=== PATIENT | female | born 1965 | race Hispanic/Latino ===

== ENCOUNTER 2018-06-12 17:25 | Emergency (ER) | payer OTHER ==
[2018-06-12 17:32] VITALS: TEMP 97.9; O2SAT 96
--- NOTE | 2018-06-12 18:10 | C.PDOC ---
History Of Present Illness 52 y/o female presents to the ED complaining of hand pain s/p fall today. Patient states this morning she was running to catch the bus, when her foot was caught on uneven pavement, causing her to fall. Patient attempted to break the fall with both hands. She is now complaining of bilateral hand pain, left > right. She denies any numbness, tingling, weakness, or other injury. There was no head trauma or LOC. - HPI Time Seen by Provider: 06/12/18 17:42 Chief Complaint (Nursing): Trauma History Per: Patient History/Exam Limitations: no limitations Onset/Duration Of Symptoms: Hrs Location Of Injury: Right: Hand, Left: Hand Severity: Moderate Past Medical History Reviewed: Historical Data, Nursing Documentation, Vital Signs Vital Signs: Last Vital Signs Temp 97.9 F 06/12/18 17:29 Pulse 80 06/12/18 17:29 Resp 20 06/12/18 17:29 BP 168/96 H 06/12/18 17:29 Pulse Ox 96 06/12/18 17:29 - Medical History PMH: Diabetes, HTN - [facility] APPLICATION OF SPLINT (12/15/13) Family History: States: No Known Family Hx - Social History Hx Tobacco Use: Yes Hx Alcohol Use: Yes Hx Substance Use: No - Immunization History Hx Tetanus Toxoid Vaccination: No Hx Influenza Vaccination: No Hx Pneumococcal Vaccination: No Review Of Systems Except As Marked, All Systems Reviewed And Found Negative. Constitutional: Negative for: Fever Respiratory: Negative for: Shortness of Breath Gastrointestinal: Negative for: Vomiting, Abdominal Pain Musculoskeletal: Positive for: Hand Pain (B/L, left > right) Neurological: Negative for: Weakness, Numbness, Incoordination Physical Exam - Physical Exam Appears: Non-toxic, No Acute Distress Skin: Warm, Dry, No Rash Head: Atraumatic, Normacephalic Eye(s): bilateral: Normal Inspection, PERRL, EOMI Oral Mucosa: Moist Neck: Normal ROM Chest: Symmetrical Respiratory: No Accessory Muscle Use Extremity: Normal ROM (of right hand, and all digits; Decreased ROM to left wrist secondary to pain), Tenderness (Mild tenderness to dorsum of right hand, None to right wrist; (+) Tenderness to dorsum of left hand and to left wrist), Capillary Refill (< 2 sec), No Deformity, Swelling (mild swelling to dorsum of left hand, no swelling or ecchymosis to right hand), Other Pulses: Left Radial: Normal (2+), Right Radial: Normal (2+) Neurological/Psych: Oriented x3, Normal Motor, Normal Sensation Gait: Steady ED Course And Treatment O2 Sat by Pulse Oximetry: 96 (RA) Pulse Ox Interpretation: Normal - Other Rad B/L Hand XR X-Ray: Interpreted by Me Interpretation: (-) acute fracture or dislocation L Wrist XR X-Ray: Interpreted by Me Interpretation: (-) acute fracture or dislocation Progress Note: Bilateral hand and left wrist x-rays taken. Imaging reviewed, no acute findings. Patient counseled regarding results. CONNOR wrap applied to bilateral wrists. Patient is stable for discharge home, advised to take Motrin PRN for pain. Disposition - Disposition Referrals: Bienvenido Infante MD [Medical Doctor] - Caesar Sharpe III, MD [Staff Provider] - Disposition: HOME/ ROUTINE Disposition Time: 19:00 Condition: STABLE Additional Instructions: Follow up with your PMD and Orthopedist within 2-3 days. Return to ED if feel worse. Prescriptions: Ibuprofen [Motrin Tab] 600 mg PO Q8 #30 tab Instructions: Contusion (DC), Common Wrist Injuries Forms: [facility] (Albanian), Work Excuse - Clinical Impression Clinical Impression: Left wrist sprain, Hand contusion - PA / [facility] HAND / Resident Statement MD/DO has reviewed & agrees with the documentation as recorded. - Scribe Statement The provider has reviewed the documentation as recorded by the Scribdesiree Chandra All medical record entries made by the Kaylynnibdesiree were at my direction and personally dictated by me. I have reviewed the chart and agree that the record accurately reflects my personal performance of the history, physical exam, medical decision making, and the department course for this patient. I have also personally directed, reviewed, and agree with the discharge instructions and disposition.
[2018-06-12 19:07] VITALS: BP 146/85; PULSE 78; RESP 16
--- NOTE | 2018-06-13 08:06 | RAD ---
Date of service: 06/12/2018 PROCEDURE: Left Wrist Radiographs. HISTORY: fall COMPARISON: Left forearm x-ray 12/15/2013 FINDINGS: BONES: No definitive interval acute fracture appreciated. Dorsal ossific flake fracture avulsed fragment-prior triquetrum fracture fragment inferred per series 4, image 1 2014 image. Along the dorsal proximal carpal row dorsal cortical osseous hypertrophy probably similar for differences in technique. The dorsal soft tissues and fat planes do not appear particularly swollen now or significantly obliterated. Chronic status here carpus level inferred. Radial shaft deformity compatible with old healed prior fracture fragments similar appearing with 2014. JOINTS: No dislocation. First carpal metacarpal arthrosis. Radiocarpal joint mild arthrosis. SOFT TISSUES: Unremarkable OTHER FINDINGS: None. IMPRESSION: Chronic appearing fracture findings radial shaft and triquetrum. No acute definitive fracture lines noted. No dislocation. Arthrosis
--- NOTE | 2018-06-13 08:16 | RAD ---
PROCEDURE: Bilateral hand radiographs. HISTORY: fall COMPARISON: None. FINDINGS: BONES: Right Hand: No fracture appreciated. Left Hand: Definitive fracture noted. The trabecular markings of the 4th distal tuft equivocal E the 2nd distal tuft series 1, image 1 are borderline prominent in the radiolucent conspicuity. Other views do not support or reproduced suspicious or concerning features. No soft tissue swelling here seen. Developmental variant prominent trabecular markings is favored over fracture here JOINTS: Right Hand: Mild diffuse joint space narrowing radiocarpal metacarpal phalangeal and interphalangeal joints. Left Hand: Same is those on the right SOFT TISSUES: Right Hand: Normal. Left Hand: Normal. OTHER FINDINGS: None. IMPRESSION: No definitive or convincing fractures identified. The trabecular markings of the 4th distal tuft to lesser extent the 2nd distal tuft of the left hand appear slightly prominent-believed to be within developmental variation. This is favored over fracture periods regional soft tissues normal appearing. Correlate clinically Bilateral diffuse multifocal arthrosis. No erosions noted.
== END 2018-06-12 19:07 | disposition home or self-care (01) ==
LOC: C.ER 17:25
DX: S63.502A Unspecified sprain of left wrist, initial encounter (principal); S60.229A Contusion of unspecified hand, initial encounter; W18.30XA Fall on same level, unspecified, initial encounter; Y93.02 Activity, running; Y92.480 Sidewalk as the place of occurrence of the external cause